=== PATIENT | female | born 1985 | race Caucasian/White ===

== ENCOUNTER 2017-05-04 20:48 | Emergency (ER) | payer OTHER ==
[2017-05-04 21:41] LABS: Hematocrit 38 % (35-47); Hemoglobin 12.7 g/dl (12.0-16.0); Mean Corpuscular HGB Conc 34 g/dl (31-36); Mean Corpuscular Hemoglobin 31 pg (27-31); Mean Corpuscular Volume 91 fL (80-97); Mean Platelet Volume 8 um3 (7.4-10.4); Red Blood Count 4.17 10^6/ul (4.0-5.4); Red Cell Distribution Width 14 % (10.5-15); White Blood Count 6.5 10^3/ul (3.5-10.8)
[2017-05-04 21:56] LABS: Albumin 4.6 g/dL (3.2-5.2); BUN/Creatinine Ratio 18.5 (8-20); Calcium 9.2 mg/dL (8.6-10.3); EGFR African American 134.2 (>60); EGFR Non-African American 104.3 (>60); Globulin 2.8 g/dL (2-4); Magnesium 2.3 mg/dL (1.9-2.7); Potassium 3.8 mmol/L (3.5-5.0); Total Bilirubin 0.6 mg/dL (0.2-1.0); Total Protein 7.4 g/dL (6.4-8.9)
--- NOTE | 2017-05-04 22:19 | RAD ---
Indication: Palpitations. Associated dizziness and tingling. Comparison: No relevant prior exams available on the [facility] [place] for comparison. Technique: Upright AP 2140 hours Report: Elevated lung volumes and suggestion of patchy rarefaction of the mid to upper lung zone interstitial markings. No focal pulmonary lesion, compelling alveolar consolidation, pleural effusion, pneumothorax. IMPRESSION: Potential obstructive pulmonary disease. No acute cardiopulmonary process evident.
[2017-05-04 22:31] LABS: TSH (Thyroid Stimulating Horm) 0.88 mcIU/mL (0.34-5.60)
[2017-05-04 23:18] VITALS: BP 102/74
--- NOTE | 2017-05-12 14:46 | ED ---
Franki Quesada Thomas, scribed for Israel Rodríguez MD on 05/04/17 at 2247 . Palpitations / Dysrhythmia - HPI Summary HPI Summary: The pt is a 32 y/o F referred from [facility] c/o episodes of palpitations for the past two weeks. During these episodes, she notes a pounding in my head, feeling my heart beat differently, and tingling. Last month she flew to [place]. She is not on control. She drinks half a cup of coffee every morning. Her PCP is Dr. Roberts. PMHx: previously healthy. PSHx: none. SHx: occasional alcohol, no illicit drugs, no smoking. FHx: DM. There no are changes to her menstrual periods. She denies any recent stressors, but she notes that she is moving soon. - History of Current Complaint Chief Complaint: EDDysrhythmPalp Time Seen by Provider: 05/04/17 21:38 Hx Obtained From: Patient, Family/[place] - daughter in room Onset/Duration: Lasting Weeks - 2, Still Present Timing: Intermittent Episodes Lasting: - intermittent Aggravating: Nothing Alleviating: Nothing Associated Signs & Symptoms: Negative - Allergy/Home Medications Allergies/Adverse Reactions: Allergies Allergy/AdvReac Type Severity Reaction Status Date / Time Amoxicillin Allergy Hives Verified 05/04/17 20:51 Azithromycin Allergy Hives Verified 05/04/17 20:51 PMH/Surg Hx/FS Hx/Imm Hx Previously Healthy: Yes Cardiovascular History: Denies: Hx Myocardial Infarction Opthamlomology History: Denies: Hx Legally Blind - Surgical History Surgery Procedure, Year, and Place: None. - Immunization History Date of Tetanus Vaccine: unknown Date of Influenza Vaccine: no Infectious Disease History: Yes Infectious Disease History: Denies: Traveled Outside the [place] in Last 30 Days - Family History Known Family History: Positive: Diabetes Negative: Hypertension - Social History Alcohol Use: Occasionally Substance Use Type: Reports: None Smoking Status (MU): Never Smoked Tobacco Review of Systems Constitutional: Negative Negative: Fever, Chills Eyes: Negative Negative: Erythema - eyes ENT: Negative Negative: Sore Throat Positive: Palpitations - for two weeks, "feely my heart beat differently". Negative: Chest Pain Respiratory: Negative Negative: Shortness Of Breath, Cough Gastrointestinal: Negative Negative: Abdominal Pain, Vomiting, Nausea Genitourinary: Negative Negative: dysuria, hematuria Musculoskeletal: Negative Negative: Myalgia, Edema - leg Skin: Negative Negative: Rash Neurological: Other - POS: "pounding in my head" (intermittent episodes for two weeks), tingling (intermittent episodes for two weeks); NEG: dizziness Psychological: Normal All Other Systems Reviewed And Are Negative: Yes Physical Exam - Summary Physical Exam Summary: Constitutional: Well-developed, Well-nourished, Alert. (-) Distressed Skin: Warm, Dry HENT: Normocephalic; Atraumatic Eyes: Conjunctiva normal Neck: Musculoskeletal ROM normal neck. (-) JVD, (-) Stridor, (-) Tracheal deviation Cardio: Rhythm regular, rate normal, Heart sounds normal; Intact distal pulses; The pedal pulses are 2+ and symmetric. Radial pulses are 2+ and symmetric. (-) Murmur Pulmonary/Chest wall: Effort normal. (-) Respiratory distress, (-) Wheezes, (-) Rales Abd: Soft, (-) Tenderness, (-) Distension, (-) Guarding, (-) Rebound Musculoskeletal: (-) Edema Lymph: (-) Cervical adenopathy Neuro: Alert, Oriented x3 Psych: Mood and affect Normal Triage Information Reviewed: Yes Vital Signs On Initial Exam: Initial Vitals Temp Pulse Resp BP Pulse Ox 98.6 F 60 14 102/67 99 05/04/17 20:51 05/04/17 20:51 05/04/17 20:51 05/04/17 20:51 05/04/17 20:51 Vital Signs Reviewed: Yes - Umberto Coma Scale Coma Scale Total: 15 Diagnostics - Vital Signs Vital Signs Temp Pulse Resp BP Pulse Ox 05/04/17 22:25 98 F 55 16 94/59 99 05/04/17 20:51 98.6 F 60 14 102/67 99 - Laboratory Lab Results: Lab Results 05/04/17 05/04/17 05/04/17 Range/Units 21:32 21:32 21:32 WBC 6.5 (3.5-10.8) 10^3/ul RBC 4.17 (4.0-5.4) 10^6/ul Hgb 12.7 (12.0-16.0) g/dl Hct 38 (35-47) % MCV 91 (80-97) fL MCH 31 (27-31) pg MCHC 34 (31-36) g/dl RDW 14 (10.5-15) % Plt Count 149 L (150-450) 10^3/ul MPV 8 (7.4-10.4) um3 Neut % (Auto) 49.5 (38-83) % Lymph % (Auto) 40.3 (25-47) % Harmon % (Auto) 7.0 (1-9) % Eos % (Auto) 2.3 (0-6) % Baso % (Auto) 0.9 (0-2) % Absolute Neuts (auto) 3.2 (1.5-7.7) 10^3/ul Absolute Lymphs (auto) 2.6 (1.0-4.8) 10^3/ul Absolute Monos (auto) 0.5 (0-0.8) 10^3/ul Absolute Eos (auto) 0.1 (0-0.6) 10^3/ul Absolute Basos (auto) 0.1 (0-0.2) 10^3/ul Absolute Nucleated RBC 0.01 10^3/ul Nucleated RBC % 0.1 Sodium 137 (133-145) mmol/L Potassium 3.8 (3.5-5.0) mmol/L Chloride 104 (101-111) mmol/L Carbon Dioxide 29 (22-32) mmol/L Anion Gap 4 (2-11) mmol/L BUN 12 (6-24) mg/dL Creatinine 0.65 (0.51-0.95) mg/dL Est GFR ( Amer) 134.2 (>60) Est GFR (Non-Af Amer) 104.3 (>60) BUN/Creatinine Ratio 18.5 (8-20) Glucose 96 (70-100) mg/dL Lactic Acid 0.4 L (0.5-2.0) mmol/L Calcium 9.2 (8.6-10.3) mg/dL Magnesium 2.3 (1.9-2.7) mg/dL Total Bilirubin 0.60 (0.2-1.0) mg/dL AST 11 L (13-39) U/L ALT 9 (7-52) U/L Alkaline Phosphatase 39 (34-104) U/L Troponin I 0.00 (<0.04) ng/mL Total Protein 7.4 (6.4-8.9) g/dL Albumin 4.6 (3.2-5.2) g/dL Globulin 2.8 (2-4) g/dL Albumin/Globulin Ratio 1.6 (1-3) TSH 0.88 (0.34-5.60) mcIU/mL Result Diagrams: 05/04/17 21:32 05/04/17 21:32 Lab Statement: Any lab studies that have been ordered have been reviewed, and results considered in the medical decision making process. - Radiology CXR Xray Interpretation: Positive (See Comments) - Potential obstructive pulmonary disease. No acute cardiopulmonary process evident Radiology Interpretation Completed By: Radiologist - EKG 20:58 Cardiac Rate: Bradycardia - 58 BPM EKG Interpretation: Sinus bradycardia. Short MT interval. No STEMI. Re-Evaluation - Re-Evaluation First Eval Re-Evaluation Time: 23:00 Change: Unchanged Comment: I discussed the possibility of needing a Leon monitor in the future. Course/Dx - Course Assessment/Plan: The pt is a 32 y/o F referred from [facility] c/o episodes of palpitations for the past two weeks. During these episodes, she notes a pounding in my head, feeling my heart beat differently, and tingling. Last month she flew to [place]. She is not on control. She drinks half a cup of coffee every morning. Her PCP is Dr. Roberts. PMHx: previously healthy. PSHx: none. SHx: occasional alcohol, no illicit drugs, no smoking. FHx: DM. There no are changes to her menstrual periods. She denies any recent stressors, but she notes that she is moving soon. Bloodwork shows Plt count 149, lactic acid 0.4, AST 11. CXR reveals potential obstructive pulmonary disease. no acute cardiopulmonary process evident. EKG reveals sinus bradycardia, short MT interval, and NO STEMI. The patient is discharged home with a diagnosis of palpitations. She was directed to follow up with [facility] referral and was given instructions when to return to the ED. - Diagnoses Provider Diagnoses: Palpitations Discharge - Discharge Plan Condition: Stable Disposition: HOME Patient Education Materials: Palpitations (ED) Referrals: [facility] PHYSICIAN REFERRAL [Outside] - 3 Days Additional Instructions: RETURN TO THE EMERGENCY DEPARTMENT FOR NEW OR WORSENING SYMPTOMS. The documentation as recorded by the Franki hough Thomas accurately reflects the service I personally performed and the decisions made by , Israel Rodríguez MD.
== END 2017-05-04 23:17 | disposition home or self-care (01) ==
LOC: ED 20:48
DX: R00.2 Palpitations (principal)
CPT/HCPCS: 36415; 71010; 80053; 83605; 83735; 84443; 84484; 85025; 93005; 96360; 99282; 99283

== ENCOUNTER 2017-12-25 18:03 | Emergency (ER) | payer OTHER ==
[2017-12-25 18:16] VITALS: BP 93/54
--- NOTE | 2017-12-25 20:44 | UC ---
Elvis Quesada Nilda, scribed for Ty Beckham MD on 12/25/17 at 1909 . Throat Pain/Nasal Des HPI - HPI Summary HPI Summary: This patient is a 32 year old F presenting to [facility] with a chief complaint of constant sore throat for the last 2 days. The patient rates the pain 2/10 in severity. Symptoms aggravated and alleviated by nothing. Patient denies fever, chills, and myalgia. Patient states recent sick contact with daughter who was diagnosed with strep throat 4 days ago. - History of Current Complaint Chief Complaint: UCRespiratory Stated Complaint: SORE THROAT Time Seen by Provider: 12/25/17 18:12 Hx Obtained From: Patient Hx Last Menstrual Period: 11/29/17 Onset/Duration: Sudden Onset, Lasting Days, Still Present Severity: Mild Pain Intensity: 2 Pain Scale Used: 0-10 Numeric Associated Signs & Symptoms: Positive: Other - negative fever, chills, and myalgia Related History: Other (Noted In Comments) - recent sick contact with daughter who was found to be + for strep 4 days ago. - Allergies/Home Medications Allergies/Adverse Reactions: Allergies Allergy/AdvReac Type Severity Reaction Status Date / Time amoxicillin Allergy Severe Hives Verified 12/25/17 18:16 azithromycin [From Zithromax] Allergy Severe Hives Verified 12/25/17 18:16 Home Medications: Home Medications Multivitamin [Multivitamins] 1 cap PO DAILY 12/25/17 [History Confirmed 12/25/17 ] PMH/Surg Hx/FS Hx/Imm Hx - Surgical History Surgical History: None Surgery Procedure, Year, and Place: None. - Family History Known Family History: Positive: Diabetes Negative: Hypertension - Social History Alcohol Use: Weekly Alcohol Amount: 2 DRINKS/WEEK Substance Use Type: None Smoking Status (MU): Never Smoked Tobacco Review of Systems Constitutional: Other - negative fever and chills ENT: Sore Throat Musculoskeletal: Other: - negative myalgia All Other Systems Reviewed And Are Negative: Yes Physical Exam - Summary Physical Exam Summary: VITAL SIGNS: Reviewed. GENERAL: Patient is a well developed and nourished F who is lying comfortable in the stretcher. Patient is not in any acute respiratory distress. HEAD AND FACE: Normocephalic EYES: PERRLA, EOMI x 2. EARS: Hearing grossly intact. MOUTH: Oropharynx within normal limits. NECK: Supple, trachea is midline, no adenopathy, no JVD, no carotid bruit. CHEST: Symmetric, no tenderness at palpation LUNGS: Clear to auscultation bilaterally. No wheezing or crackles. CVS: Regular rate and rhythm, S1 and S2 present, no murmurs or gallops appreciated. ABDOMEN: Soft, non-tender. Bowel sounds are normal. No abdominal abnormal pulsations. EXTREMITIES: Full ROM in all major joints, no edema, no cyanosis or clubbing. NEURO: Alert and oriented x 3. No acute neurological deficits. Speech is normal and follows commands. SKIN: Dry and warm Triage Information Reviewed: Yes Vital Signs: Initial Vital Signs Temp 99.4 F 12/25/17 18:13 Pulse 61 12/25/17 18:13 Resp 16 12/25/17 18:13 BP 93/54 12/25/17 18:13 Pulse Ox 97 12/25/17 18:13 Vital Signs Reviewed: Yes Re-Evaluation - Re-Evaluation First Eval Re-Evaluation Time: 18:36 Comment: Reviewed labs and D/C plan with patient. Patient is agreeable to D/C. Throat Pain/Nasal Course/Dx - Course Assessment/Plan: This patient is a 32 year old F presenting to [facility] with a chief complaint of constant sore throat for the last 2 days. The patient rates the pain 2/10 in severity. Symptoms aggravated and alleviated by nothing. Patient denies fever, chills, and myalgia. Patient states recent sick contact with daughter who was diagnosed with strep throat 4 days ago. Rapid Strep is negative. Patient will be D/C home with f/u with PCP. Medications reviewed. Allergies reviewed. I discussed all the findings and test results with the patient. Patient was instructed to return to the urgent care or go to ER immediately if any of the symptoms return or worsens. Plan of care was discussed with the patient, and patient understands and agrees. All questions were answered to patient satisfaction. There were no further complaints or concerns. The patient is hemodynamically stable, alert and oriented x3. - Differential Dx/Diagnosis Provider Diagnoses: pharyngitis Discharge - Sign-Out/Discharge Documenting (check all that apply): Discharge - Discharge Plan Condition: Stable Disposition: HOME Patient Education Materials: Pharyngitis (ED) Referrals: Mily Salas MD [Primary Care Provider] - Additional Instructions: Take ibuprofen or tylenol for pain or fever. Increase your fluid intake Return to the UC if symptoms worsen - Billing Disposition and Condition Condition: STABLE Disposition: HOME The documentation as recorded by the Elvis hough Nilda accurately reflects the service I personally performed and the decisions made by me, Ty Beckham MD.
== END 2017-12-25 18:55 | disposition home or self-care (01) ==
LOC: UCEAST 18:03
DX: J02.9 Acute pharyngitis, unspecified (principal); Z88.3 Allergy status to other anti-infective agents
CPT/HCPCS: 87651; 99211; G0463